=== PATIENT | female | born 1980 | race Caucasian/White ===

== ENCOUNTER 2018-03-16 02:40 | Emergency (ER) | payer OTHER ==
[~2018-03-16] VITALS: Ht 162.6 cm; Wt 52.2 kg
--- NOTE | 2018-03-16 03:10 | NUR ---
Patient discharged to home in stable conditon. Written and verbal after care instructions given. Patient verbalizes understanding of instructions.
[2018-03-16 03:11] VITALS: BP 131/74
== END 2018-03-16 03:20 | disposition home or self-care (01) ==
LOC: ER 02:47
DX: R21 Rash and other nonspecific skin eruption (principal)
CPT/HCPCS: 99281; A4663

== ENCOUNTER 2018-04-21 21:28 | Emergency (ER) | payer OTHER ==
[~2018-04-21] VITALS: Ht 162.6 cm; Wt 52.2 kg
[2018-04-21] MEDS ORDERED: MECLIZINE HCL 25 MG TABLET ONE (22:08)
[2018-04-21] MEDS ORDERED: MECLIZINE HCL 25 MG TABLET PO ONE (22:15)
--- NOTE | 2018-04-21 22:16 | NUR ---
Pt refused the meclizine, states she just wants the CT scan.
--- NOTE | 2018-04-21 22:51 | NUR ---
Patient discharged to home in stable conditon. Written and verbal after care instructions given. Patient verbalizes understanding of instructions. Pt ambulated out of ER in steady gait with mother. All belongings with pt. VSS. NAD noted.
[2018-04-21 22:55] VITALS: BP 113/74
== END 2018-04-21 22:55 | disposition home or self-care (01) ==
LOC: ER 21:29
DX: R51 Headache (principal); R42 Dizziness and giddiness
CPT/HCPCS: 70450; A4663; J8597

== ENCOUNTER 2019-03-09 14:21 | Emergency (ER) | payer OTHER ==
[~2019-03-09] VITALS: Ht 162.6 cm; Wt 56.7 kg
--- NOTE | 2019-03-09 16:10 | NUR ---
PT REFUSES HEPLOCK. OKED WITH DLOOD DRAW ONLY WITH BUTTERFLY. CALLED LAB FOR BLOOD DRAW, NOTIFIED.
[2019-03-09] MEDS ORDERED: IV NORMAL SALINE 1000 ML BAG IV ONE (16:15)
--- NOTE | 2019-03-09 16:49 | NUR ---
PT REFUSES "THE STUPID BLOOD TEST", AFTER ALL THE EXPLANATION PROVIDED. PT WALKS AOUT OF ER ACCOMPANIED BY THE PERSON IN CHARGE OF HER.
== END 2019-03-09 16:52 | disposition left against medical advice (07) ==
LOC: ER 14:21
DX: L30.9 Dermatitis, unspecified (principal)
CPT/HCPCS: 93005; A4663; J7030